=== PATIENT | male | born 1975 | race Caucasian/White ===

== ENCOUNTER 2016-02-25 17:23 | Emergency (ER) | payer MEDICARE, MEDICAID ==
[2016-02-25 17:35] VITALS: BP 131/72
--- NOTE | 2016-02-25 17:58 | ED ---
Lower Extremity - HPI Summary HPI Summary: 40 M w/ PMH of epilepsy presents with muscle spasms around his knee at 5pm. They occurred for a couple minutes and he states will the area felt warm. He was standing when it occurred. There was visible shaking from his thigh to his dennis around his knee. He denies any history of DVT, gout, recent infection or pain in the knee. He denies any trauma to the area. He denies any fever or edema. This has never happened before. - History of Current Complaint Chief Complaint: EDExtremityLower Stated Complaint: LEFT LEG PAIN Time Seen by Provider: 02/25/16 17:46 Pain Intensity: 2 - Allergies/Home Medications Allergies/Adverse Reactions: Allergies Allergy/AdvReac Type Severity Reaction Status Date / Time Quetiapine [From Seroquel] Allergy Rash Verified 02/25/16 17:35 Diphenhydramine AdvReac Intermediate Drowsy; Verified 02/25/16 17:35 [From Benadryl] Tired; Balance Problems antihistamines AdvReac Intermediate Tired; Uncoded 02/25/16 17:35 Balance Problems; Disorientation PMH/Surg Hx/FS Hx/Imm Hx Endocrine/Hematology History: Denies: Hx Diabetes, Hx Thyroid Disease Cardiovascular History: Denies: Hx Hypertension, Hx Pacemaker/ICD Respiratory History: Denies: Hx Asthma, Hx Chronic Obstructive Pulmonary Disease (COPD) GI History: Denies: Hx Ulcer History: Denies: Hx Renal Disease Sensory History: Denies: Hx Hearing Aid Neurological History: Reports: Hx Seizures Psychiatric History: Denies: Hx Panic Disorder - Surgical History Surgery Procedure, Year, and Place: Left Ankle Surgery (removal of FB) Infectious Disease History: No Infectious Disease History: Denies: Hx Clostridium Difficile, Hx Hepatitis, Hx Human Immunodeficiency Virus (HIV), Hx of Known/Suspected MRSA, Hx Shingles, Hx Tuberculosis, Hx Known/ Suspected VRE, Hx Known/Suspected VRSA, History Other Infectious Disease, Traveled Outside the [place] in Last 30 Days - Family History Known Family History: Negative: Cardiac Disease - Social History Alcohol Use: None Substance Use Type: Reports: None Smoking Status (MU): Never Smoked Tobacco Have You Smoked in the Last Year: No Review of Systems Negative: Fever Negative: Chest Pain Negative: Shortness Of Breath Positive: Other - muscle spasm of left knee/thigh All Other Systems Reviewed And Are Negative: Yes Physical Exam Triage Information Reviewed: Yes Vital Signs On Initial Exam: Initial Vitals Temp Pulse Resp BP Pulse Ox 98.5 F 86 16 131/72 99 02/25/16 17:30 02/25/16 17:30 02/25/16 17:30 02/25/16 17:30 02/25/16 17:30 Vital Signs Reviewed: Yes Appearance: Positive: Well-Appearing Skin: Positive: Warm, Dry Head/Face: Positive: Normal Head/Face Inspection Eyes: Positive: Normal, EOMI, BEATRICE, Conjunctiva Clear ENT: Positive: Normal ENT inspection, Pharynx normal, TMs normal Respiratory/Lung Sounds: Positive: Clear to Auscultation, Breath Sounds Present Cardiovascular: Positive: Normal, RRR Musculoskeletal: Positive: Strength/ROM Intact - of left knee, ankle, and hip, Other - good pulses, capillary refill <2 secs, palpable muscle spasms of quadricep muscle. Negative: Pawan Sign Left, Edema Left Diagnostics - Vital Signs Vital Signs Temp Pulse Resp BP Pulse Ox 02/25/16 17:30 98.5 F 86 16 131/72 99 - Laboratory Result Diagrams: 02/25/16 18:27 02/25/16 18:27 Lab Statement: Any lab studies that have been ordered have been reviewed, and results considered in the medical decision making process. - Radiology knee Xray Interpretation: No Acute Changes Radiology Interpretation Completed By: Radiologist Lower Extremity Course/Dx - Course Course Of Treatment: 40 M presents with shaking of left knee, this occurs when standing up, no injury, no edema of joint, has full ROM no risk factors for blood clot as no family or personal history, no recent travel or surgeries, and does not smoke, got xray normal and labs normal, felt muscle spasm of quadriceps so will treat as such, patient agrees with plan - Diagnoses Differential Diagnosis/HQI/PQRI: Positive: DVT, Fracture (Closed), Sprain, Strain, Other Provider Diagnoses: Muscle spasm of left lower extremity Discharge - Discharge Plan Condition: Good Disposition: HOME Patient Education Materials: Muscle Spasm (ED) Referrals: Duglas Lundberg MD [Primary Care Provider] - Additional Instructions: Take Tylenol or ibuprofen every 6 hours as needed for pain Apply heat, massage area, stretch Follow up with primary care physician within 5 days if no improvement Return to ED if develop numbness, tingling, inability to move joint, or any new or worsening symptoms
[2016-02-25 18:37] LABS: Hematocrit 42 % (42-52); Hemoglobin 14.2 g/dl (14.0-18.0); Mean Corpuscular HGB Conc 34 g/dl (31-36); Mean Corpuscular Hemoglobin 30 pg (27-31); Mean Corpuscular Volume 88 fL (80-94); Mean Platelet Volume 8 um3 (7.4-10.4); Red Cell Distribution Width 13 % (10.5-15)
[2016-02-25 18:50] LABS: Albumin 4.4 g/dL (3.2-5.2); BUN/Creatinine Ratio 11.8 (8-20); Calcium 9.6 mg/dL (8.6-10.3); EGFR African American 95.8 (>60); EGFR Non-African American 74.5 (>60); Globulin 2.3 g/dL (2-4); Magnesium 2.2 mg/dL (1.9-2.7); Potassium 3.7 mmol/L (3.5-5.0); Total Bilirubin 0.4 mg/dL (0.2-1.0); Total Protein 6.7 g/dL (6.4-8.9)
--- NOTE | 2016-02-25 19:05 | RAD ---
Indication: LEFT knee spasms. No preceding injury. Comparison: December 03, 2005 Technique: AP, tunnel, crosstable lateral, sunrise views LEFT knee. Report: Normal articular alignment and preserved joint spaces. Negative for effusion or fracture. Unremarkable soft tissue contours. IMPRESSION: Negative exam.
== END 2016-02-25 19:35 | disposition home or self-care (01) ==
LOC: ED 17:23
DX: M62.838 Other muscle spasm (principal); M79.605 Pain in left leg
CPT/HCPCS: 36415; 80053; 83735; 85025; 99282

== ENCOUNTER 2017-02-06 20:42 | Emergency (ER) | payer MEDICARE, MEDICAID ==
--- NOTE | 2017-02-06 23:16 | ED ---
Inderjit Alvarado Tiffany scribmorleia for Jean Claude Wallace on 02/06/17 at 2259 . GI/ HPI - HPI Summary HPI Summary: This patient is a 41 year old male presenting to [facility] accompanied by female with a chief complaint of rectal bleeding and pain since a couple days ago. The patient rates the pain 3/10 in severity. Symptoms aggravated by nothing. Symptoms alleviated by nothing. Patient denies abdominal pain. Pt has a hx of hemorrhoids. - History of Current Complaint Chief Complaint: EDRectalPain Time Seen by Provider: 02/06/17 22:42 Stated Complaint: RECTAL BLEEDING Hx Obtained From: Patient Onset/Duration: Started Days Ago, Still Present Timing: Constant Current Severity: Moderate Pain Intensity: 3 Location of Pain: Rectal Associated Signs and Symptoms: Negative: Abdominal Pain - Allergy/Home Medications Allergies/Adverse Reactions: Allergies Allergy/AdvReac Type Severity Reaction Status Date / Time Quetiapine [From Seroquel] Allergy Rash Verified 02/25/16 17:35 Diphenhydramine AdvReac Intermediate Drowsy; Verified 02/25/16 17:35 [From Benadryl] Tired; Balance Problems antihistamines AdvReac Intermediate Tired; Uncoded 02/25/16 17:35 Balance Problems; Disorientation PMH/Surg Hx/FS Hx/Imm Hx Previously Healthy: No Endocrine/Hematology History: Denies: Hx Diabetes, Hx Thyroid Disease Cardiovascular History: Denies: Hx Hypertension, Hx Pacemaker/ICD Respiratory History: Denies: Hx Asthma, Hx Chronic Obstructive Pulmonary Disease (COPD) GI History: Denies: Hx Ulcer History: Denies: Hx Renal Disease Sensory History: Denies: Hx Hearing Aid Neurological History: Reports: Hx Seizures Psychiatric History: Denies: Hx Panic Disorder - Surgical History Surgery Procedure, Year, and Place: Left Ankle Surgery (removal of FB) Infectious Disease History: No Infectious Disease History: Denies: Hx Clostridium Difficile, Hx Hepatitis, Hx Human Immunodeficiency Virus (HIV), Hx of Known/Suspected MRSA, Hx Shingles, Hx Tuberculosis, Hx Known/ Suspected VRE, Hx Known/Suspected VRSA, History Other Infectious Disease, Traveled Outside the [place] in Last 30 Days - Family History Known Family History: Negative: Cardiac Disease - Social History Alcohol Use: None Hx Substance Use: No Substance Use Type: Reports: None Hx Tobacco Use: No Smoking Status (MU): Never Smoked Tobacco Have You Smoked in the Last Year: No Review of Systems Negative: Fever Negative: Abdominal Pain Positive: other - rectal pain and rectal bleeding All Other Systems Reviewed And Are Negative: Yes Physical Exam - Summary Physical Exam Summary: Appearance: Well appearing, no pain distress Skin: warm, dry, reflects adequate perfusion Head/face: normal Eyes: EOMI, BEATRICE ENT: normal Neck: supple, non-tender Respiratory: CTA, breath sounds present Cardiovascular: RRR, pulses symmetrical Abdomen: non-tender, soft Bowel: present Musculoskeletal: normal, strength/ROM intact Neuro: normal, sensory motor intact, A&Ox3 Rectal exam: external hemorrhoid at 6 o'clock position Triage Information Reviewed: Yes Vital Signs On Initial Exam: Initial Vitals Temp Pulse Resp BP Pulse Ox 98.1 F 78 16 127/81 98 02/06/17 20:45 02/06/17 20:45 02/06/17 20:45 02/06/17 20:45 02/06/17 20:45 Vital Signs Reviewed: Yes Procedures - Procedure Summary Procedure Summary: Hemorrhoidectomy procedure: rectal Hemorrhoid was openedwith blade 11 under local lidocaine injection. . Blood clot extracted. No active bleeding. Patient tolerated well throughout.no complications after the procedure. Diagnostics - Vital Signs Vital Signs Temp Pulse Resp BP Pulse Ox 02/06/17 21:47 97.7 F 73 16 120/78 99 02/06/17 20:45 98.1 F 78 16 127/81 98 - Laboratory Lab Statement: Any lab studies that have been ordered have been reviewed, and results considered in the medical decision making process. GIGU Course/Dx - Course Course Of Treatment: This patient is a 41 year old male [facility] by female with a chief complaint of rectal bleeding and pain since a couple days ago. In the ED course, a hemorrhoidectomy procedure was performed. Hemorrhoid was opened. Blood clot extracted. No active bleeding. Patient tolerated well throughout. Patient will be discharged with follow up from PCP and referral to general surgery. The patient is agreeable with this plan. - Diagnoses Provider Diagnoses: Thrombosed external hemorrhoid Discharge - Discharge Plan Condition: Stable Disposition: HOME Referrals: Zeyad Montenegro MD [Medical Doctor] - Duglas Lundberg MD [Primary Care Provider] - 3 Days Additional Instructions: Follow up with PCP in 3 days. You are being referred to general surgery. Return to ED if current symptoms worsen, or new symptoms develop. The documentation as recorded by the Inderjit taylor Tiffany accurately reflects the service I personally performed and the decisions made by , Jean Claude Wallace.
[2017-02-06 23:36] VITALS: BP 132/81
== END 2017-02-06 23:35 | disposition home or self-care (01) ==
LOC: ED 20:42
DX: K64.5 Perianal venous thrombosis (principal)
CPT/HCPCS: 99282

== ENCOUNTER 2017-09-29 16:33 | Emergency (ER) | payer MEDICARE, MEDICAID ==
[2017-09-29 16:49] VITALS: BP 129/91
--- NOTE | 2017-09-29 17:41 | UC ---
Bite Injury/Animal HPI - HPI Summary HPI Summary: 41 yo male presents with cat bit to the left calf sustained about 1 hour [employer]. He is unsure who owns the cat and says it did not have a collar. Ran away after it bit him. He is here for rabies vaccination and anbx. - History of Current Complaint Chief Complaint: UCBiteInjury Stated Complaint: RABIES SHOTS Time Seen by Provider: 09/29/17 17:39 Hx Obtained From: Patient Pain Intensity: 0 Pain Scale Used: 0-10 Numeric Onset/Duration: Sudden Onset Type of Bite: Animal Has Animal Been Immunized?: Unknown Character: Puncture - Allergies/Home Medications Allergies/Adverse Reactions: Allergies Allergy/AdvReac Type Severity Reaction Status Date / Time diphenhydramine Allergy See Comment Verified 09/29/17 16:52 [From Benadryl] quetiapine [From Seroquel] Allergy Rash Verified 09/29/17 16:52 anahistamines Allergy See Comment Uncoded 09/29/17 16:52 PMH/Surg Hx/FS Hx/Imm Hx - Additional Past Medical History Additional PMH: Seizures - Surgical History Surgical History: Yes Surgery Procedure, Year, and Place: Left Ankle Surgery (removal of FB) - Family History Known Family History: Negative: Cardiac Disease - Social History Lives: With Family Alcohol Use: None Substance Use Type: None Smoking Status (MU): Never Smoked Tobacco Have You Smoked in the Last Year: No Review of Systems Constitutional: Negative Skin: Other - Cat bite left calf Respiratory: Negative Cardiovascular: Negative Gastrointestinal: Negative Neurological: Negative Psychological: Negative All Other Systems Reviewed And Are Negative: Yes Physical Exam - Summary Physical Exam Summary: GENERAL: NAD. WDWN. No pain distress. SKIN: Two puncture wounds to left calf. NTTP. No erythema or edema. No streaking , bleeding, or drainage. NECK: Supple. Nontender. No lymphadenopathy. CHEST: No accessory muscle use. Breathing comfortably and in no distress. CV: Pulses intact NEURO: Alert. CN II-XII grossly intact. PSYCH: Age appropriate behavior. Triage Information Reviewed: Yes Vital Signs: Initial Vital Signs Temp 98 F 09/29/17 16:45 Pulse 79 09/29/17 16:45 Resp 16 09/29/17 16:45 BP 129/91 09/29/17 16:45 Pulse Ox 98 09/29/17 16:45 Vital Signs Reviewed: Yes Bite Injury Course/Dx - Course Course Of Treatment: Rabies vaccine, tdap, and RIG administered as per guidelines. Wound was cleansed with NS. Rx for augmentin - Differential Dx/Diagnosis Provider Diagnoses: Cat bite left calf Discharge - Sign-Out/Discharge Documenting (check all that apply): Patient Departure - Discharge Plan Condition: Stable Disposition: HOME Prescriptions: Amoxicillin/Clavulanate TAB* [Augmentin TAB 875*] 875 mg PO BID #20 tab Patient Education Materials: Rabies Vaccine (By injection), Rabies Immune Globulin (By injection), Rabies (ED) Referrals: Duglas Lundberg MD [Primary Care Provider] - Additional Instructions: If you develop a fever, shortness of breath, chest pain, new or worsening symptoms - please call your PCP or go to the ED. - Billing Disposition and Condition Condition: STABLE Disposition: Home
[2017-09-29] MEDS ORDERED: Rabies VIRUS VACCINE (Imovax)* 2.5 UNIT/ML 1 ML IM ONE (17:44)
[2017-09-29] MEDS ORDERED: Rabies Immune Globulin 10 ML* 150 UNIT/ML VIAL IM ONE (17:44)
[2017-09-29] MEDS ORDERED: Tetan/Diph/Pertus SYR(Tdap)* 0.5 ML SYR(BOOSTRIX) use SYR IM ONE (18:21)
== END 2017-09-29 18:45 | disposition home or self-care (01) ==
LOC: UCEAST 16:33
DX: S81.832A Puncture wound without foreign body, left lower leg, initial encounter (principal); W55.01XA Bitten by cat, initial encounter; Y93.9 Activity, unspecified; Y92.9 Unspecified place or not applicable; Z23 Encounter for immunization; Z88.8 Allergy status to other drugs, medicaments and biological substances
CPT/HCPCS: 90375; 90471; 90472; 90715; 96372; 99212; G0463

== ENCOUNTER 2019-02-21 10:48 | Emergency (ER) | payer MEDICARE, MEDICAID ==
--- OUTSIDE RECORDS SUMMARY | 2019-02-21 10:56 | XMS REPORT | Summary of Care ---
:1975 Author Organization [facility] Address [address] [place] [address] Care Team Providers Name Role Phone Duglas Lundberg Primary Care Provider Reason for Referral Refer to Department Only (Routine) Status Reason Specialty Diagnoses / Referred By Referred To Procedures Contact Contact Authorized GENERAL SURGERY / Diagnoses Left groin pain Lopez Sam MD General Surgery [address] [id number] Reason for Visit Reason Comments Establish Care Encounter Details Date Type Department Care Team Description 12/27/2018 Office Visit Lopez Lyons MD Left groin pain Medicine [address] (Primary Dx) [address] [address] [address] [phone] Allergies Active Allergy Reactions Severity Noted Date Comments Altaryl Unknown Reaction 09/30/2008 Benadryl Allergy Other 09/30/2008 Grand mal seizure documented as of this encounter (statuses as of 12/27/2018) Medications Medication Sig Dispensed Refills Start Date End Date Status Lamotrigine 200 Take 1 Tab 60 Tab 0 06/05/2015 Active MG Oral Tab by mouth TWICE DAILY. LamoTRIgine 50 MG Take 50 mg 30 Tab 0 06/05/2015 Active Oral TABLET SR 24 by mouth HR EVERY BEDTIME. dicyclomine Take 1 Tab 40 Tab 0 11/18/2017 12/27/2018 Discontinued (BENTYL) 20 MG by mouth (Patient stopped Oral Tab FOUR TIMES the medication) DAILY NEEDED (cramping). documented as of this encounter (statuses as of 12/27/2018) Active Problems Problem Noted Date Skin lesion of right leg 06/05/2015 Epilepsy 12/20/2013 Overview: Neurologist Dr Tony ROSA last seen Mar 2014 Onset age 16 Short-term memory loss 12/20/2013 Overview: [facility] evaluation pending 2013 documented as of this encounter (statuses as of 12/27/2018) Resolved Problems Problem Noted Date Resolved Date Seizure disorder 10/29/2008 12/20/2013 Headache(784.0) 05/03/2004 12/20/2013 Syncope and collapse 04/27/2004 12/20/2013 documented as of this encounter (statuses as of 12/27/2018) Social History Tobacco Use Types Packs/Day Years Used Date Never Smoker Smokeless Tobacco: Never Used Alcohol Use Drinks/Week oz/Week Comments No Sex Assigned at Date Recorded Not on file Job Start Date Occupation Industry Not on file Not on file Not on file Travel History Travel Start Travel End No recent travel history available. documented as of this encounter Last Filed Vital Signs Vital Sign Reading Time Taken Comments Blood Pressure 108/78 12/27/2018 2:44 PM EST Pulse 74 12/27/2018 2:44 PM EST Temperature - - Respiratory Rate - - Oxygen Saturation - - Inhaled Oxygen Concentration - - Weight 73.6 kg (162 lb 3.2 oz) 12/27/2018 2:44 PM EST Height 180.3 cm (5' 11") 12/27/2018 2:44 PM EST Body Mass Index 22.62 12/27/2018 2:44 PM EST documented in this encounter Progress Notes Lopez Sam MD - 12/27/2018 3:00 PM EST PATIENT: Kayode Montague : 1975 DATE OF SERVICE: 12/27/2018 CHIEF COMPLAINT Chief Complaint Patient presents with Establish Care SUBJECTIVE / HISTORY OF PRESENT ILLNESS Kayode Montague is a 43-y.o. male. HPI NEW TO ME. CAME WITH HIS MOTHER. POOR HISTORIAN. HAS BEEN SEEING DIFFERENT PROVIDERS. C/O LEFT GROIN PAIN. OFF AND ON 7 TO 8 MONTHS. NO INJURY. NO SWELLING. NO REDNESS. BOWEL AND BLADDERFUNCTION NORMAL. NO SYSTEMIC SYMPTOMS. ONE OF THE PROVIDER HAD SUGGESTED C.T. SCAN WHICH DID NOT HAPPEN. KNOWN SEIZURE DISORDER. UNDER CARE OF A [place] NEUROLOGIST. ON DISABILITY. REST NOTES FROM Epic, MEDICATIONS,ALLERGY REVIEWED. Past Medical History: Diagnosis Date Generalized convulsive epilepsy Short-term memory loss 12/20/2013 Family History Problem Relation Age of Onset Hypertension Father Current Outpatient Medications Medication Sig Lamotrigine 200 MG Oral Tab Take 1 Tab by mouth TWICE DAILY. LamoTRIgine 50 MG Oral TABLET SR 24 HR Take 50 mg by mouth EVERY BEDTIME. No current facility-administered medications for this visit. Allergies Allergen Reactions Altaryl Unknown Reaction Benadryl Allergy Other Grand mal seizure Social History Socioeconomic History Marital status: Single Spouse name: Not on file Number of children: Not on file Years of education: Not on file Highest education level: Not on file Occupational History Not on file Social Needs Financial resource strain: Not on file Food insecurity: Worry: Not on file Inability: Not on file Transportation needs: Medical: Not on file Non-medical: Not on file Tobacco Use Smoking status: Never Smoker Smokeless tobacco: Never Used Substance and Sexual Activity Alcohol use: No Drug use: No Sexual activity: Not Currently Lifestyle Physical activity: Days per week: Not on file Minutes per session: Not on file Stress: Not on file Relationships Social connections: Talks on phone: Not on file Gets together: Not on file Attends pentecostalism service: Not on file Active member of club or organization: Not on file Attends meetings of clubs or organizations: Not on file Relationship status: Not on file Intimate partner violence: Fear of current or ex partner: Not on file Emotionally abused: Not on file Physically abused: Not on file Forced sexual activity: Not on file Other Topics Concern Back Care Not Asked Bike Helmet Not Asked Blood Transfusions Not Asked Caffeine Concern Not Asked Exercise Yes Comment: walking Hobby Hazards Not Asked International Travel Not Asked Service Not Asked Occupational Exposure Not Asked Seat Belt Not Asked Self-Exams Not Asked Sleep Concern Not Asked Special Diet No Stress Concern Not Asked Weight Concern No Social History Narrative Lives in [facility] Lives alone Never / no girlfriend Occupation: on disability for epilepsy Does not drive REVIEW OF SYSTEMS: Review of Systems Constitutional: Negative. HENT: Negative. Eyes: Negative. Respiratory: Negative. Cardiovascular: Negative. Genitourinary: Negative. Skin: Negative. OBJECTIVE / PHYSICAL EXAM BP 108/78 (BP Location: Left arm, Patient Position: Sitting) | Pulse 74 | Ht 5 ' 11" (1.803 m) | Wt 162 lb 3.2 oz (73.6 kg) | BMI 22.62 kg/m Physical Exam Constitutional: He is oriented to person, place, and time and well-developed, well-nourished, and inno distress. HENT: Head: Normocephalic and atraumatic. Mouth/Throat: Oropharynx is clear and moist. Eyes: Pupils are equal, round, and reactive to light. EOM are normal. No scleral icterus. Neck: Normal range of motion. Neck supple. Cardiovascular: Normal rate, regular rhythm and normal heart sounds. Pulmonary/Chest: Effort normal and breath sounds normal. He has no wheezes. He has no rales. Abdominal: Soft. Bowel sounds are normal. Musculoskeletal: Normal range of motion. General: No tenderness or edema. Neurological: He is alert and oriented to person, place, and time. No cranial nerve deficit. Gait normal. Skin: Skin is warm. No erythema. Psychiatric: Mood and affect normal. ASSESSMENT / PLAN ICD-9-CM ICD-10-CM 1. Left groin pain 789.04 R10.32 REFER TO GENERAL SURGERY I CAN'T FIND ANYTHING PALPATORY IN LEFT GROIN. NO TENDERNESS. EXPLAINED AND CLEARLY TOLD THAT I CAN'T MAKE OUT WHAT IT COULD BE. SUGGESTED SURGICAL REFERRAL [FOR REASONS EXPLAINED] AND HE IS FINE WITH THAT. Author: Lopez Sam MD 12/27/2018 15:35 documented in this encounter Plan of Treatment Date Type Specialty Care Team Description 12/31/2018 Office Visit General Surgery Chris Meeks MD [address] [address] 01/30/2019 Office Visit Internal Medicine Philomena Vega MD [address] [address] Name Type Priority Associated Diagnoses Order Schedule REFER TO GENERAL Referral Routine Left groin pain Expected: 12/27/2018, SURGERY Expires: 12/28/2019 Health Maintenance Due Date Last Done Comments MEDICARE ANNUAL WELLNESS VISIT 1975 INFLUENZA VACCINE (#1) 2018 DEPRESSION SCREENING 12/13/2019 12/12/2018 LIPID DISORDER SCREENING 11/25/2021 11/25/2016, 08/03/2015 HPV IMMUNIZATION SERIES Aged Out No longer eligible based on patient's age to complete this topic MENINGOCOCCAL VACCINE IMM Aged Out No longer eligible based on patient's age to complete this topic PNEUMOCOCCAL 0-64 YRS Aged Out No longer eligible based on patient's age to complete this topic documented as of this encounter Results Not on filedocumented in this encounter Visit Diagnoses Diagnosis Left groin pain - Primary Abdominal pain, left lower quadrant documented in this encounter Insurance Payer Benefit Plan / Subscriber ID Effective Dates Phone Address Type Group MEDICARE MEDICARE PART A xxxxxxxxxxx 2011-Present Medicare & B MEDICAID [facility] xxxxxxxx 2016-Present Medicaid [place] MEDICAID Guarantor Name Account Type Relation to Date of Phone Billing Patient Address Kayode Montague Personal/Family 1975 [id number] (Home) [place], [place] [phone] [id number] (Work) documented as of this encounter
--- OUTSIDE RECORDS SUMMARY | 2019-02-21 10:56 | XMS REPORT | Summary of Care ---
:1975 Author Organization [facility] Address [address] [place] [address] Care Team Providers Name Role Phone Duglas Lundberg Primary Care Provider Reason for Referral MRI/CAT/PET Scan (Routine) Status Reason Specialty Diagnoses / Referred By Referred To Procedures Contact Contact Authorized Diagnoses Left groin pain Chris Meeks MD Procedures MR PELVIS WO CONTRAST [address] [place] [address] Reason for Visit Reason Comments Follow Up f/u left groin pain Encounter Details Date Type Department Care Team Description 01/25/2019 Office Visit [facility] Chris Meeks MD Left groin pain Surgery [address] (Primary Dx) [address] [facility] [place] [address] [place] [address] Allergies Active Allergy Reactions Severity Noted Date Comments Altaryl Unknown Reaction 09/30/2008 Benadryl Allergy Other 09/30/2008 Grand mal seizure Dye Intravenous Radiographic Cardiac Reaction 12/31/2018 Rapid heart rate Imaging Contrast documented as of this encounter (statuses as of 01/27/2019) Medications Medication Sig Dispensed Refills Start Date End Date Status Lamotrigine 200 MG Oral Take 1 Tab by 60 Tab 0 06/05/2015 Active Tab mouth TWICE DAILY. ibuprofen (MOTRIN) 600 Take 1 Tab by 60 Tab 1 12/31/2018 Active MG Oral Tab mouth THREE TIMES DAILY. documented as of this encounter (statuses as of 01/27/2019) Active Problems Problem Noted Date Skin lesion of right leg 06/05/2015 Epilepsy 12/20/2013 Overview: Neurologist Dr Tony Rodriguez [place] last seen Mar 2014 Onset age 16 Short-term memory loss 12/20/2013 Overview: [facility] evaluation pending 2013 documented as of this encounter (statuses as of 01/27/2019) Resolved Problems Problem Noted Date Resolved Date Seizure disorder 10/29/2008 12/20/2013 Headache(784.0) 05/03/2004 12/20/2013 Syncope and collapse 04/27/2004 12/20/2013 documented as of this encounter (statuses as of 01/27/2019) Social History Tobacco Use Types Packs/Day Years [...] Sign Reading Time Taken Comments Blood Pressure - - Pulse 75 01/25/2019 9:54 AM EST Temperature - - Respiratory Rate 16 01/25/2019 9:54 AM EST Oxygen Saturation 98% 01/25/2019 9:54 AM EST Inhaled Oxygen Concentration - - Weight 73.5 kg (162 lb) 01/25/2019 9:54 AM EST Height 180.3 cm (5' 11") 01/25/2019 9:54 AM EST Body Mass Index 22.59 01/25/2019 9:54 AM EST documented in this encounter Progress Notes Chris Meeks MD - 01/25/2019 9:45 AM EST Groin Pain Office Visit PATIENT: Kayode Montague : 1975 DATE OF SERVICE: 01/25/2019 Chris Meeks MD [address] [place] [address] Duglas Lundberg Chief Complaint Patient presents with Follow Up f/u left groin pain HISTORY OF PRESENT ILLNESS: 01/25/19 Mr. Montague is here today for reevaluation and the results of his ultrasound. He continues to report left groin pain with marginal improvement on meds. He had an ultrasound which showed a very small possible hernia of the left groin. He continues to deny a bulge. 12/31/18 Patient presents to the office with a complaint of Left groin pain of 1 years duration. He denies a bulge. Denies signs or symptoms of obstruction. No etiology has been found and patient has not tried any OTC meds for the discomfort. The pain is moderate, localized and intermittent. A comprehensive review of systems was negative except for: Gastrointestinal: positive for abdominal pain Neurological: positive for memory problems and seizures Past Medical History: Diagnosis Date Generalized convulsive epilepsy Short-term memory loss 12/20/2013 No past surgical history on file. Social History Socioeconomic History Marital status: Single [...] Concern No Social History Narrative Lives in [place] Lives alone Never / no girlfriend Occupation: on disability for epilepsy Does not drive Family History Problem Relation Age of Onset Hypertension Father Outpatient Medications as of 12/31/2018 Medication Sig Dispense Refill Lamotrigine 200 MG Oral Tab Take 1 Tab by mouth TWICE DAILY. 60 Tab 0 No current facility-administered medications on file as of 12/31/2018. Allergies Allergen Reactions Altaryl Unknown Reaction Benadryl Allergy Other Grand mal seizure Dye Intravenous Radiographic Imaging Contrast Cardiac Reaction Rapid heart rate PHYSICAL EXAMINATION: Pulse 75 | Resp 16 | Ht 5' 11" (1.803 m) | Wt 162 lb (73.5 kg) | SpO2 98% | BMI 22.59 kg/m GENERAL: VS reviewed; no acute distress. SKIN: normal, no rashes or abnormalities noted. HEENT: normocephalic, atraumatic,sclera normal, anicteric, mucous membrane moist NECK: no mass, trachea midline ENDOCRINE: no thyromegaly. RESPIRATORY: nonlabored breathing, no respiratory distress; no clubbing, cyanosis, or edema. GI: Soft, nontender to deep palpation, nondistended. NEUROLOGICAL: Normal gait, no focal deficits PSYCHIATRIC: Alert and oriented to person, place and time HERNIA: No palpable hernia on examination; slight tenderness; no change with valsalva ASSESSMENT: ICD-9-CM ICD-10-CM 1. Left groin pain 789.04 R10.32 MR PELVIS WO CONTRAST PLAN: Will plan to proceed with MRI to further delineate the groin area as the ultrasound nor examination is confirmatory for an inguinal hernia. Chris Meeks MD 01/27/2019 16:50Electronically signed by Chris Meeks MD at 4:59 PM ESTdocumented in this encounter Plan of Treatment Date Type Specialty Care Team Description 02/08/2019 Ancillary Procedure Radiology Name Type Priority Associated Diagnoses Order Schedule MR PELVIS WO CONTRAST Imaging Routine Left groin pain Expected: 01/25/2019, Expires: 01/25/2020 Health Maintenance Due Date Last Done Comments [...] A xxxxxxxxxxx 2011-Present Medicare & B MEDICAID [facility] xxxxxxxx 2016-Present Medicaid [place] Guarantor Name Account Type Relation to Date of Phone Billing Patient Address [place]ode Personal/Family 1975 [id number] (Home) [place], [place] [phone] [id number] (Work) documented as of this encounter
--- OUTSIDE RECORDS SUMMARY | 2019-02-21 10:56 | XMS REPORT | Summary of Care ---
:1975 Author Organization [facility] Address [address] [place] [address] Care Team Providers Name Role Phone Duglas Lundberg Primary Care Provider Reason for Referral MRI/CAT/PET Scan (Routine) Status Reason Specialty Diagnoses / Referred By Referred To Procedures Contact Contact Authorized Diagnoses Left groin pain Chris Meeks MD Procedures US ABDOMEN LIMITED [address] [place] [address] Reason for Visit Reason Comments Surgery Consult NEW, Left groin pain Refer to Department Only (Routine) Status Reason Specialty Diagnoses / Referred By Referred To Procedures Contact Contact Closed GENERAL SURGERY / Diagnoses Left groin pain Lopez Sam MD General Surgery [address] [place] [address] Encounter Details Date Type Department Care Team Description 12/31/2018 Office Visit [facility] Chris Meeks MD Left groin pain [address] (Primary Dx) [place] [id number] [place] [address] Allergies Active Allergy Reactions Severity Noted Date Comments Altaryl Unknown Reaction 09/30/2008 Benadryl Allergy Other 09/30/2008 Grand mal seizure Dye Intravenous Radiographic Cardiac Reaction 12/31/2018 Rapid heart rate Imaging Contrast documented as of this encounter (statuses as of 01/01/2019) Medications Medication Sig Dispensed Refills Start Date End Date Status Lamotrigine 200 Take 1 Tab 60 Tab 0 06/05/2015 Active MG Oral Tab by mouth TWICE DAILY. ibuprofen Take 1 Tab 60 Tab 1 12/31/2018 Active (MOTRIN) 600 MG by mouth Oral Tab THREE TIMES DAILY. LamoTRIgine 50 MG Take 50 mg 30 Tab 0 06/05/2015 12/31/2018 Discontinued Oral TABLET SR 24 by mouth (Error) HR EVERY BEDTIME. documented as of this encounter (statuses as of 01/01/2019) Active Problems Problem Noted Date Skin lesion of right leg 06/05/2015 Epilepsy 12/20/2013 [facility] Onset age 16 Short-term memory loss 12/20/2013 Overview: [facility] evaluation pending 2013 documented as of this encounter (statuses as of 01/01/2019) Resolved Problems Problem Noted Date Resolved Date Seizure disorder 10/29/2008 12/20/2013 Headache(784.0) 05/03/2004 12/20/2013 Syncope and collapse 04/27/2004 12/20/2013 documented as of this encounter (statuses as of 01/01/2019) Social History Tobacco Use Types Packs/Day Years [...] Sign Reading Time Taken Comments Blood Pressure 116/76 12/31/2018 9:30 AM EST Pulse 73 12/31/2018 9:30 AM EST Temperature 36.3 12/31/2018 9:30 AM C (97.3 EST F) Respiratory Rate 16 12/31/2018 9:30 AM EST Oxygen Saturation 99% 12/31/2018 9:30 AM EST Inhaled Oxygen Concentration - - Weight 71.6 kg (157 lb 14.4 oz) 12/31/2018 9:30 AM EST Height 180.3 cm (5' 11") 12/31/2018 9:30 AM EST Body Mass Index 22.02 12/31/2018 9:30 AM EST documented in this encounter Progress Notes Chris Meeks MD - 12/31/2018 9:30 AM EST Groin Pain Office Visit PATIENT: Kayode Montague : 1975 DATE OF SERVICE: 12/31/2018 Lopez Sam MD [address] [place] [address] Duglas Lundberg Chief Complaint Patient presents with Surgery Consult NEW, Left groin pain HISTORY OF PRESENT ILLNESS: Patient presents to the office with a complaint of Left groin pain of 1 years duration. He denies a bulge. Denies signs or symptoms of obstruction. No etiology has beenfound and patient has not tried any OTC meds for the discomfort. The pain is moderate, localized and intermittent. A comprehensive review of systems was negative except for: Gastrointestinal: positive for abdominal pain Neurological: positive for memory problems and seizures Past Medical History: Diagnosis Date Generalized convulsive epilepsy Short-term memory loss 12/20/2013 History reviewed. No pertinent surgical history. Social History Socioeconomic History Marital status: Single [...] file Gets together: Not on file Attends anabaptist service: Not on file Active member of [...] Concern No Social History Narrative Lives in [facility] Lives alone Never / no girlfriend Occupation: [...] Cardiac Reaction Rapid heart rate PHYSICAL EXAMINATION: BP 116/76 | Pulse 73 | Temp 97.3 F (36.3 C) | Resp 16 | Ht 5' 11" ( 1.803 m) | Wt 157 lb14.4 oz (71.6 kg) | SpO2 99% | BMI 22.02 kg/m GENERAL: VS reviewed; no acute distress. [...] HERNIA: No palpable hernia on examination; slight tenderness ASSESSMENT: ICD-9-CM ICD-10-CM 1. Left groin pain 789.04 R10.32 REFER TO GENERAL SURGERY US ABDOMEN LIMITED PLAN: Recommend NSAIDS and rest for one month F/u for reevaluation or sooner if pain worsens or notices a bulge. Will also send for left groin ultrasound Chris Meeks MD 12/31/2018 20:33 documented in this encounter Plan of Treatment Date Type Specialty Care Team Description 01/08/2019 Ancillary Procedure Radiology 01/25/2019 Office Visit General Surgery Chris Meeks MD [address] [place] [address] 01/30/2019 Office Visit Internal Medicine Philomena Vega MD [address] [place] [address] Name Type Priority Associated Diagnoses Order Schedule US ABDOMEN LIMITED Imaging Routine Left groin pain Expected: 12/31/2018, Expires: 12/31/2019 Health Maintenance Due Date Last Done Comments [...] A xxxxxxxxxxx 2011-Present Medicare & B MEDICAID [facility] xxxxxxxx 2016-Present Medicaid [place] MEDICA[place] Guarantor Name Account Type Relation to Date of Phone Billing Patient Address Kayode Montague Personal/Family 1975 [phone] (Home) [place], [place] [phone] [id number] (Work) documented as of this encounter
--- NOTE | 2019-02-21 12:46 | UC ---
General HPI - HPI Summary HPI Summary: 43 yo gentleman presents with mom, c/o last several days hard to take deep breath. Feels like getting bronchitis. No fever / chills. Not able to use albuterol d/t increased heart rate. No palpitations. Pain with cough, no hemoptysis. no GI issues. no fever / chils. No rash. CHildhood hx asthma. nonsmoker. - History of Current Complaint Chief Complaint: UCChestPain Stated Complaint: CHEST CONGESTION Time Seen by Provider: 02/21/19 12:46 Hx Obtained From: Patient Pain Intensity: 6 - Allergy/Home Medications Allergies/Adverse Reactions: Allergies Allergy/AdvReac Type Severity Reaction Status Date / Time diphenhydramine Allergy See Comment Verified 02/21/19 11:10 [From Benadryl] quetiapine [From Seroquel] Allergy Rash Verified 02/21/19 11:10 anahistamines Allergy See Comment Uncoded 02/21/19 11:10 PMH/Surg Hx/FS Hx/Imm Hx Previously Healthy: Yes - Surgical History Surgical History: Yes Surgery Procedure, Year, and Place: Left Ankle Surgery (removal of FB) - Family History Known Family History: Negative: Cardiac Disease - Social History Alcohol Use: None Substance Use Type: None Smoking Status (MU): Never Smoked Tobacco Have You Smoked in the Last Year: No Review of Systems All Other Systems Reviewed And Are Negative: Yes Constitutional: Positive: Negative Skin: Positive: Negative Eyes: Positive: Negative ENT: Positive: Sinus Pain/Tenderness - see hpi, Other Respiratory: Positive: Shortness Of Breath, Cough Cardiovascular: Positive: Negative Gastrointestinal: Positive: Negative Genitourinary: Positive: Negative Motor: Positive: Negative Neurovascular: Positive: Negative Musculoskeletal: Positive: Negative Neurological: Positive: Negative Psychological: Positive: Negative Is Patient Immunocompromised?: No Physical Exam Triage Information Reviewed: Yes Appearance: Well-Nourished, Other: - sitting up, conversing easily. nad. Vital Signs: Initial Vital Signs Temp 98.4 F 02/21/19 11:11 Pulse 72 02/21/19 11:11 Resp 18 02/21/19 11:11 BP 135/81 02/21/19 11:11 Pulse Ox 96 02/21/19 11:11 Vital Signs Reviewed: Yes Eye Exam: Normal ENT: Positive: Pharyngeal erythema - mild post redness, but no sores / exudates. uvula midline., TM dull Neck exam: Normal Neck: Positive: Supple, No Lymphadenopathy Respiratory Exam: Other - + bib slight exp wheeze. No distress. No rtx. Respiratory: Positive: No respiratory distress, No accessory muscle use Cardiovascular Exam: Normal Cardiovascular: Positive: RRR, Pulses Normal, Brisk Capillary Refill Abdominal Exam: Normal Abdomen Description: Positive: Nontender Musculoskeletal Exam: Normal Musculoskeletal: Positive: Strength Intact, ROM Intact Neurological Exam: Normal - grossly nonfocal Psychological Exam: Normal - nad Skin Exam: Normal - nondiaphoretic. no visible or reported rash Course/Dx - Course Course Of Treatment: CXR - see [facility]. + copd. D/w pt and mom. EKG - sr at 69bpm. pr 158 qtc 418. Probable LVH. Comp with 2014 (prior LVH) . Not able to use albuterol, not interested in any puffers or similar. But will f /u PCP for resp recheck and future options. Will start pred tape, add amoxil (mom reports that he has tolerated as a child) [facility] as posed answered to the best of my ability. - Diagnoses Provider Diagnosis: COPD exacerbation, Bronchitis Discharge ED - Sign-Out/Discharge Documenting (check all that apply): Patient Departure All imaging exams completed and their final reports reviewed: Yes - Discharge Plan Condition: Stable Disposition: HOME Prescriptions: Amoxicillin PO (*) [Amoxicillin 875 MG (*)] 875 mg PO BID #14 tab predniSONE 5 mg TAB [Deltasone 5 mg TAB] 5 mg PO DAILY #15 tab Patient Education Materials: Acute Bronchitis (ED), COPD (Chronic Obstructive Pulmonary Disease) (ED) Referrals: Duglas Lundberg MD [Primary Care Provider] - Additional Instructions: Seek medical attention for worse or new problems. Hydrate. Please follow up with Dr. Lundberg in the next 2-3 weeks for respiratory check, and medication review. Humidified air. - Billing Disposition and Condition Condition: STABLE Disposition: Home
[2019-02-21 13:59] VITALS: BP 124/88
== END 2019-02-21 13:58 | disposition home or self-care (01) ==
LOC: UCEAST 10:48
DX: J44.1 Chronic obstructive pulmonary disease with (acute) exacerbation (principal); Z88.8 Allergy status to other drugs, medicaments and biological substances
CPT/HCPCS: 71046; 93005; 99212; G0463